=== PATIENT | male | born 1980 | race American Indian/Alaskan Native ===

== ENCOUNTER 2017-03-01 13:47 | Outpatient (CLI) | payer OTHER ==
--- NOTE | 2017-03-02 11:26 | Magnetic Resonance Report ---
MRI of the brain with and without contrast. History: Multiple sclerosis. Procedure: Routine brain protocol with and without contrast. Findings: The ventricles are normal in size and contour. There are no masses or extra-axial collections. There is no restricted diffusion. On the postcontrast images, there is an area of enhancement with several small vascular structures in the right cerebellar hemisphere. There is no mass effect. The fourth ventricle is normal in position. No additional areas of abnormal enhancement are seen throughout the brain. There are no white matter signal abnormalities. There is evidence of mild ethmoid and left frontal sinusitis. The remaining visualized extracranial structures are normal. Impression: 1. 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 2. Mild chronic sinus disease.
== END 2017-03-01 13:48 | disposition home or self-care (01) ==
LOC: MRI 13:47
PROVIDERS: ATTEND Internal Medicine
DX: H47.20 Unspecified optic atrophy (principal); J32.2 Chronic ethmoidal sinusitis; J32.1 Chronic frontal sinusitis
CPT/HCPCS: 70553; A9577